=== PATIENT | female | born 1980 | race Caucasian/White ===

== ENCOUNTER → 2018-03-30 | Outpatient (CLI) | payer OTHER | LOC: BMCIMAGING 14:56 | PROVIDERS: ATTEND Physician Assistant | DX: M79.631 Pain in right forearm (principal); M79.641 Pain in right hand; M25.531 Pain in right wrist ==

== ENCOUNTER 2018-09-29 15:47 | Emergency (ER) | payer OTHER ==
--- NOTE | 2018-09-29 17:03 | CPEKG ---
Test Reason : OPEN Blood Pressure : / mmHG Vent. Rate : 066 BPM Atrial Rate : 000 BPM P-R Int : 156 ms QRS Dur : 098 ms QT Int : 397 ms P-R-T Axes : 092 080 005 degrees QTc Int : 416 ms Sinus rhythm Minimal ST depression, inferior leads Confirmed by Yash Samayoa ([id number]) on 09/29/2018 5:03:10 PM Referred By: PHYSICIAN ED Confirmed By:Yash Samayoa
[2018-09-29] MEDS ORDERED: LORazepam 1 MG TAB PO ONE (17:39)
[2018-09-29 17:44] LABS: PLATELET COUNT 166 10^3/uL (150-400)
[2018-09-29] MEDS ORDERED: DIAZEPAM 5 MG TAB PO ONE (17:59)
--- NOTE | 2018-09-29 18:15 | EDPHY ---
H & P Time Seen by Provider: 09/29/18 17:02 HPI/ROS: CHIEF COMPLAINT: Chest tightness and shortness of breath and panic and anxiety HISTORY OF PRESENT ILLNESS: Patient is had attacks like this before but more than 10 years ago. She had her night approximately a week ago. She has had difficulty sleeping and then the next morning had panic attack associated with chest tightness and shortness of breath with feeling like she can't eat having nausea. Symptoms persisted until Friday and she went to urgent care and they gave her 15 Klonopin helped a little bit. She presents today with persistent symptoms. She says feels like she can't sit still and she can't eat. She feels like something sitting on her chest as painful and she has trouble taking a deep breath and she feels very panic has severe anxiety. REVIEW OF SYSTEMS: Eye: no change in vision ENT: no sore throat Cardiac: No syncope or palpitations Pulmonary: No cough or hemoptysis Abdomen: no vomiting, diarrhea, abdominal pain Musculoskeletal: no back pain or leg swelling Skin: no rash Neuro: no headache Constitutional: no fever : no urinary symptoms A comprehensive 10 point review of systems is otherwise negative aside from elements mentioned in the history of present illness. PAST MEDICAL HISTORY: Includes fibromyalgia ovarian cyst and hysterectomy. Negative for diabetes hypercholesterolemia or hypertension. Family history: Negative for premature coronary artery disease or venous thromboembolism. Social history: Negative for tobacco or cocaine, uses marijuana General Appearance: Alert and conversant, cooperative. Eyes: No scleral icterus. ENT, Mouth: Normal mucous membranes. Respiratory: Normal respiratory effort, breath sounds equal, lungs are clear to auscultation. Speaks in full sentences, not splinting. Cardiovascular: Regular rate and rhythm. Gastrointestinal: Abdomen is soft and non tender. Neurological: Alert, face symmetric, normal motor and sensory in extremities. Skin: Warm and dry, no rashes. Musculoskeletal: No peripheral edema. No calf tenderness. Psychiatric: Moderately anxious and almost tearful. Emergency Department course/MDM: Labs done because of EKG showing possible very minimal ST depression in inferior leads. Overall clinical picture much more likely to be panic or anxiety. Low pretest probability for pulmonary embolism or aortic dissection or pneumothorax or pneumonia. Plan for chest x-ray, oral Valium, D-dimer and troponin. Discussed with Gary Gonzalez. Will call the patient tomorrow in get prompt office follow-up in the next 1-2 days. 1854: Discussed with the patient. I think that with continuous symptoms for almost a week and a negative troponin that ACS or myocardial infarction would be unlikely. She is given oral Klonopin. Will have her follow up with her primary care doctor promptly. Patient says she is comfortable with this plan. Smoking Status: Former smoker Constitutional: Initial Vital Signs Temperature (C) 36.7 C 09/29/18 15:55 Heart Rate 75 09/29/18 15:55 Respiratory Rate 24 H 09/29/18 15:55 Blood Pressure 108/77 09/29/18 15:55 O2 Sat (%) 100 09/29/18 15:55 O2 Delivery Mode Room Air Allergies/Adverse Reactions: gluten Allergy (Verified 09/29/18 15:54) haloperidol [From Haldol] Allergy (Verified 09/29/18 15:54) tramadol Allergy (Verified 09/29/18 15:54) SEIZURE LIKE "SHAKING" DAIRY Allergy (Uncoded 10/27/15 13:55) Home Medications: Medication Instructions Recorded DULoxetine [Cymbalta 60 MG (*)] 60 mg PO BID 10/24/15 Herbals/Supplements -Info Only 1 ea PO DAILY 10/24/15 Omeprazole Magnesium [Prilosec Otc] 20 mg PO DAILY PRN 10/24/15 clonazePAM [klonoPIN (*)] 1 mg PO TID PRN 10/24/15 tiZANidine HCL [Zanaflex 2MG (*)] 4 mg PO BID PRN 10/24/15 traZODone [traZODONE 100MG (*)] 100 mg PO HS 10/24/15 Estradiol 09/29/18 Medical Decision Making - Diagnostics EKG Interpretation: 12-lead EKG interpreted by me; official reading is in computer system. My interpretation is sinus rhythm rate 66, possible very mild inferior ST depression. Imaging Results: Imaging Impressions Chest X-Ray 09/29/18 17:15 Impression: No acute pulmonary disease. Imaging: I viewed and interpreted images myself Differential Diagnosis: Differential considered including but not limited to pulmonary embolism, ACS or ND, panic or anxiety, pneumothorax or pneumonia, anemia, acidosis - Data Points Laboratory Results: Laboratory Results 09/29/18 17:30 09/29/18 17:30 09/29/18 09/29/18 09/29/18 17:34 17:30 17:30 WBC RBC Hgb Hct MCV MCH MCHC RDW Plt Count MPV Neut % (Auto) Lymph % (Auto) [place] % (Auto) Eos % (Auto) Baso % (Auto) Nucleat RBC Rel Count Absolute Neuts (auto) Absolute Lymphs (auto) Absolute Monos (auto) Absolute Eos (auto) Absolute Basos (auto) Absolute Nucleated RBC Immature Gran % Immature Gran # D-Dimer 0.27 ug/mLFEU ug/mLFEU (0.00-0.50) Sodium Potassium Chloride Carbon Dioxide Anion Gap BUN Creatinine Estimated GFR Glucose Calcium POC Troponin I 0.00 ng/mL ng/mL (0.00-0.08) Beta HCG, Qual NEGATIVE 09/29/18 09/29/18 17:30 17:30 WBC 5.25 10^3/uL 10^3/uL (3.80-9.50) RBC 4.08 10^6/uL L 10^6/uL (4.18-5.33) Hgb 13.3 g/dL g/dL (12.6-16.3) Hct 39.6 % % (38.0-47.0) MCV 97.1 fL fL (81.5-99.8) MCH 32.6 pg pg (27.9-34.1) MCHC 33.6 g/dL g/dL (32.4-36.7) RDW 12.2 % % (11.5-15.2) Plt Count 166 10^3/uL 10^3/uL (150-400) MPV 10.9 fL fL (8.7-11.7) Neut % (Auto) 36.2 % L % (39.3-74.2) Lymph % (Auto) 54.9 % H % (15.0-45.0) Liberty % (Auto) 7.2 % % (4.5-13.0) Eos % (Auto) 1.3 % % (0.6-7.6) Baso % (Auto) 0.2 % L % (0.3-1.7) Nucleat RBC Rel Count 0.0 % % (0.0-0.2) Absolute Neuts (auto) 1.90 10^3/uL 10^3/uL (1.70-6.50) Absolute Lymphs (auto) 2.88 10^3/uL 10^3/uL (1.00-3.00) Absolute Monos (auto) 0.38 10^3/uL 10^3/uL (0.30-0.80) Absolute Eos (auto) 0.07 10^3/uL 10^3/uL (0.03-0.40) Absolute Basos (auto) 0.01 10^3/uL L 10^3/uL (0.02-0.10) Absolute Nucleated RBC 0.00 10^3/uL 10^3/uL (0-0.01) Immature Gran % 0.2 % % (0.0-1.1) Immature Gran # 0.01 10^3/uL 10^3/uL (0.00-0.10) D-Dimer Sodium 141 mEq/L mEq/L (135-145) Potassium 3.6 mEq/L mEq/L (3.5-5.2) Chloride 103 mEq/L mEq/L (97-110) Carbon Dioxide 26 mEq/l mEq/l (22-31) Anion Gap 12 mEq/L mEq/L (6-14) BUN 11 mg/dL mg/dL (7-23) Creatinine 0.8 mg/dL mg/dL (0.6-1.0) Estimated GFR > 60 Glucose 80 mg/dL mg/dL (70-100) Calcium 9.8 mg/dL mg/dL (8.5-10.4) POC Troponin I Beta HCG, Qual Medications Given: Discontinued Medications Clonazepam (Klonopin) 1 mg PO EDNOW ONE Stop: 09/29/18 18:53 Last Admin: 09/29/18 18:56 Dose: 1 mg Clonazepam (Klonopin) 1 mg PO EDNOW ONE Stop: 09/29/18 18:55 Last Admin: 09/29/18 18:56 Dose: Not Given Diazepam (Valium) 5 mg PO EDNOW ONE Stop: 09/29/18 18:00 Last Admin: 09/29/18 18:01 Dose: 5 mg Lorazepam (Ativan) 1 mg PO EDNOW ONE Stop: 09/29/18 17:40 Last Admin: 09/29/18 18:02 Dose: Not Given Point of Care Test Results: Chemistry 04/16/19 17:34 POC Troponin I 0.00 ng/mL ng/mL (0.00-0.08) Departure - Departure Disposition: Home, Routine, Self-Care Clinical Impression: Anxiety Condition: Good Instructions: Generalized Anxiety Disorder (ED) Referrals: Irlanda Vega MD [Primary Care Provider] - 1-2 days without fail
[2018-09-29] MEDS ORDERED: clonazePAM 1 MG TAB PO ONE ×2 (18:52→18:54)
[2018-09-29 19:05] VITALS: BP 122/76
== END 2018-09-29 19:03 | disposition home or self-care (01) ==
DX: F41.9 Anxiety disorder, unspecified (principal); Z87.891 Personal history of nicotine dependence
CPT/HCPCS: 84484-ER